=== PATIENT | male | born 1985 | race Caucasian/White ===

== ENCOUNTER 2021-11-16 11:28 | Emergency (ER) | payer BC, OTHER ==
--- NOTE | 2021-11-16 12:19 | EDM.PDOC ---
ED HPI GENERAL MEDICAL PROBLEM - General Chief Complaint: Abdominal Pain Stated Complaint: ABDOMINAL PAIN Time Seen by Provider: 11/16/21 11:40 Source of Information: Reports: Patient History Limitations: Reports: No Limitations - History of Present Illness INITIAL COMMENTS - FREE TEXT/NARRATIVE: 36-year-old male presents the emergency department today with complaints of right lower quadrant pain after being seen at [facility]. Patient states he developed right lower quadrant pain at about midnight last evening. He denies any fever, chills, nausea, vomiting or diarrhea associated with this. Patient elected to go to [facility] this morning due to the discomfort. Lab studies were completed at [facility] showing a WBC of 15.9, hemoglobin 15.1, hematocrit 43.9, platelet count 298, lipase 10, glucose 102, BUN 11, creatinine 0.84, GFR greater than 90. CT of the abdomen and pelvis was completed. Radiologist impression was acute uncomplicated appendicitis. Abdomen Pain Score (Numeric/FACES): 6 - Related Data Allergies Allergy/AdvReac Type Severity Reaction Status Date / Time Penicillins Allergy Other Verified 11/16/21 11:38 Home Meds: Home Meds amLODIPine [Norvasc] 10 mg PO DAILY 11/16/21 [History] gemfibroziL [Gemfibrozil] 600 mg PO DAILY 11/16/21 [History] Past Medical History Cardiovascular History: Reports: High Cholesterol, Hypertension Endocrine/Metabolic History: Reports: Obesity/BMI 30+ Social & Family History - Family History Family Medical History: No Pertinent Family History - Tobacco Use Tobacco Use Status *Q: Former Tobacco User Used Tobacco, but Quit: Yes Month/Year Tobacco Last Used: 08/04/2020 Tobacco Use Comment: Uses Zin nicotine pouches - Caffeine Use Caffeine Use: Reports: Soda - Recreational Drug Use Recreational Drug Use: No ED ROS GENERAL - Review of Systems Review Of Systems: Comprehensive ROS is negative, except as noted in HPI. ED EXAM, GI/ABD - Physical Exam Exam: See Below Exam Limited By: No Limitations General Appearance: Alert, WD/WN, No Apparent Distress Ears: Normal External Exam, Hearing Grossly Normal Nose: Normal Inspection Throat/Mouth: Normal Inspection, Normal Lips, Normal Voice, No Airway Compromise Head: Atraumatic, Normocephalic Neck: Normal Inspection, Supple Respiratory/Chest: No Respiratory Distress, Lungs Clear, Normal Breath Sounds, No Accessory Muscle Use, Chest Non-Tender Cardiovascular: Normal Peripheral Pulses, Regular Rate, Rhythm, No Edema, No Murmur GI/Abdominal Exam: Normal Bowel Sounds, Soft, No Distention (Right and left lower quadrant), Tender (Male) Exam: Deferred Rectal (Males) Exam: Deferred Back Exam: Normal Inspection Extremities: Normal Inspection, Normal Range of Motion, Non-Tender, No Pedal Edema, Normal Capillary Refill Neurological: Alert, Oriented, Normal Cognition Psychiatric: Normal Affect, Normal Mood Skin Exam: Warm, Dry, Intact, Normal Color, No Rash Lymphatic: No Adenopathy Course - Vital Signs Text/Narrative:: Physical exam reveals an obese white male laying flat in bed. States he is not having pain if laying flat. Physical exam is essentially unremarkable. Reports right lower quadrant abdominal tenderness with palpation radiating to the left lower abdomen. I did phone her surgeon on-call, , to come over and evaluate the patient. She states due to the patient's BMI of 59.4, will not be able to have surgery at this facility as he is considered a bariatric patient. I then phoned [facility] in [place] and spoke with , neurosurgeon on-call and he states he will see the patient in the emergency department. Patient will be transferred to [facility] in [place] by private vehicle where Dr. Smart, ED physician, will see him. Patient is agreeable to this plan of care. Last Recorded V/S: Last Vital Signs Temp 98.8 F 11/16/21 11:46 Pulse 93 11/16/21 11:46 Resp 18 11/16/21 11:46 BP 197/123 H 11/16/21 11:46 Pulse Ox 97 11/16/21 11:46 - Orders/Labs/Meds Orders: Active Orders 24 hr Category Date Time Status CORONAVIRUS COVID-19 TOMER [MOLEC] Stat Lab 11/16/21 12:09 Received Departure - Departure Time of Disposition: 12:18 Disposition: DC/Tfer to Acute Hospital 02 Condition: Good Clinical Impression: Appendicitis Qualifiers: Appendicitis type: acute appendicitis Acute appendicitis type: unspecified acute appendicitis type Qualified Code(s): K35.80 - Unspecified acute appendicitis - Discharge Information Referrals: Teto Benitez MD [Primary Care Provider] - Forms: ED Department Discharge Sepsis Event Note (ED) - Focused Exam Vital Signs: Vital Signs Temp Pulse Resp BP Pulse Ox 11/16/21 11:46 98.8 F 93 18 197/123 H 97 - My Orders Last 24 Hours: My Active Orders 11/16/21 12:09 CORONAVIRUS COVID-19 TOMER [MOLEC] Stat - Assessment/Plan Last 24 Hours: My Active Orders 11/16/21 12:09 CORONAVIRUS COVID-19 TOMER [MOLEC] Stat
== END 2021-11-16 12:35 ==
LOC: JD.ED 11:28
DX: K35.80 Unspecified acute appendicitis (principal); E78.00 Pure hypercholesterolemia, unspecified; I10 Essential (primary) hypertension; E66.9 Obesity, unspecified; Z68.43 Body mass index [BMI] 50.0-59.9, adult; Z87.891 Personal history of nicotine dependence; Z88.0 Allergy status to penicillin; Z20.822 Contact with and (suspected) exposure to COVID-19
CPT/HCPCS: 99284; U0002

== ENCOUNTER 2024-10-19 13:14 | Emergency (ER) | payer BC ==
[2024-10-19] MEDS: Witch Hazel Medicated Pads 40/Jar TOP PRN (14:26)
== END 2024-10-19 15:15 | disposition home or self-care (01) ==
LOC: JD.ED 13:14
DX: K64.8 Other hemorrhoids (principal); I10 Essential (primary) hypertension; E66.9 Obesity, unspecified; Z90.49 Acquired absence of other specified parts of digestive tract; Z79.899 Other long term (current) drug therapy; Z88.0 Allergy status to penicillin; Z68.43 Body mass index [BMI] 50.0-59.9, adult
CPT/HCPCS: 99282